=== PATIENT | female | born 1990 | race African-American/Black ===

== ENCOUNTER 2021-06-05 12:53 | Observation (INO) | payer OTHER ==
[~2021-06-05] VITALS: Ht 154.9 cm; Wt 93.4 kg
[2021-06-05 13:53] VITALS: BP 121/77
[2021-06-05 14:21] LABS: APPEARANCE,URINE CLEAR (CLEAR); BILIRUBIN,URINE NEGATIVE (NEGATIVE); BLOOD, URINE NEGATIVE (NEGATIVE); COLOR,URINE YELLOW (YELLOW); LEUKOCYTE ESTERASE ,URINE 1+ (NEGATIVE); NITRITE, URINE NEGATIVE (NEGATIVE); UGLUCOSE NEGATIVE (NEGATIVE)
[2021-06-05 14:27] LABS: RBC,URINE 0-5 /HPF (0-5)
== END 2021-06-05 15:32 | disposition home or self-care (01) ==
LOC: MLD 12:53
PROVIDERS: ADMIT Obstetrics & Gynecology; ATTEND Obstetrics & Gynecology
DX: O62.9 Abnormality of forces of labor, unspecified (principal); Z3A.39 39 weeks gestation of pregnancy
CPT/HCPCS: 59025; 76819; 81001; 87086; 87653; G0378

== ENCOUNTER 2021-06-11 22:37 | Inpatient (IN) | payer OTHER, SELFPAY ==
[~2021-06-11] VITALS: Ht 154.9 cm; Wt 93.9 kg
[2021-06-11] MEDS: LACTATED RINGERS 1,000 ML IV SCH (00:21)
[2021-06-11] MEDS ORDERED: OXYTOCIN 20 UNITS in LACTATED RINGERS 1,000 ML IV SCH (23:20)
[2021-06-11] MEDS ORDERED: MISOPROSTOL 25 MCG TAB VG PRN (23:20)
[2021-06-11] MEDS ORDERED: AMPICILLIN 2,000 MG in NACL 0.9% MINI-BAG PLUS 100 ML IV SCH (23:20)
[2021-06-11] MEDS ORDERED: METHYLERGONOVINE 0.2 MG/ML AMP IM PRN (23:20)
[2021-06-11 23:47] LABS: BASOPHILS % (AUTO) 0.3 % (0.0-2.0); EOSINOPHILS # (AUTO) 0.1 K/uL (0-0.4); EOSINOPHILS % (AUTO) 1.2 % (0.0-4.0); HEMATOCRIT 31.1 % (36-48); HEMOGLOBIN 10.1 g/dL (12.0-16.0); LYMPHOCYTES # (AUTO) 1.8 K/uL (2.5-16.5); LYMPHOCYTES % (AUTO) 23.9 % (20.5-51.1); MEAN CORPUSCULAR HEMOGLOBIN 28 pg (27-31); MEAN CORPUSCULAR HGB CONC 32 g/dL (33-37); MEAN CORPUSCULAR VOLUME 86.1 fL (80-94); MONOCYTES # (AUTO) 0.8 K/uL (0.8-1.0); MONOCYTES % (AUTO) 11.3 % (1.7-9.3); NEUTROPHILS # (AUTO) 4.7 K/uL (1.8-7.7); NEUTROPHILS % (AUTO) 63.3 % (42.2-75.2); PLATELET COUNT (AUTO) 165 K/uL (140-450); RED BLOOD CELL COUNT(AUTO) 3.61 MIL/uL (4.20-5.40); RED CELL DISTRIBUTION WIDTH 14.1 % (11.6-13.7); WHITE BLOOD COUNT (AUTO) 7.4 K/uL (4.8-10.8)
[2021-06-12 00:02] LABS: ALBUMIN 2.2 g/dL (3.4-5.0); ANION GAP 11.7 (8-16); CARBON DIOXIDE 22.2 mmol/L (21-32); CREATININE 0.7 mg/dL (0.6-1.3); POTASSIUM 3.9 mmol/L (3.5-5.1); TOTAL BILIRUBIN 0.3 mg/dL (0.0-1.0)
[2021-06-12 00:29] VITALS: BP 121/68
[2021-06-12] MEDS ORDERED: PRETAB PO (00:35)
[2021-06-12 00:59] LABS: APPEARANCE,URINE CLEAR (CLEAR); BILIRUBIN,URINE NEGATIVE (NEGATIVE); BLOOD, URINE NEGATIVE (NEGATIVE); COLOR,URINE YELLOW (YELLOW); LEUKOCYTE ESTERASE ,URINE NEGATIVE (NEGATIVE); NITRITE, URINE NEGATIVE (NEGATIVE); UGLUCOSE NEGATIVE (NEGATIVE)
[2021-06-12] MEDS ORDERED: ONDANSETRON 4 MG/2 ML VIAL IVP PRN (01:40)
[2021-06-12] MEDS ORDERED: MORPHINE SULFATE 5 MG/ML VIAL IVP PRN (01:40)
[2021-06-12] MEDS: LACTATED RINGERS 1,000 ML IV SCH ×3 (03:25→13:34)
[2021-06-12] MEDS ORDERED: AMPICILLIN 1,000 MG in NACL 0.9% MINI-BAG PLUS 50 ML IV SCH (04:00)
[2021-06-12] MEDS ORDERED: ROPIVACAINE 0.2%/NS PREMIX 200 ML EPI SCH (04:10)
[2021-06-12] MEDS ORDERED: ROPIVACAINE 0.2%/NS PREMIX 200 ML EPI ONE (04:14)
[2021-06-12] MEDS ORDERED: fentaNYL citrate 0.05 MG/ML VIAL ONE (04:15)
[2021-06-12] MEDS ORDERED: FENTANYL C 0.025 MG/HR PATCH TD SCH (05:00)
--- NOTE | 2021-06-12 08:46 | NUR ---
PATIENT HAS BEEN SCREENED AND CATEGORIZED LOW NUTRITION RISK. PATIENT WILL BE SEEN WITHIN 7 DAYS OF ADMISSION. 06/18/[address]
[2021-06-12] MEDS ORDERED: TERBUTALINE 1 MG/ML VIAL SUBQ ONE (09:08)
[2021-06-12] MEDS ORDERED: OXYTOCIN 20 UNITS/LR PREMIX 1,000 ML IV ONE (09:20)
[2021-06-12] MEDS ORDERED: BENZOCAINE/MENTHOL 20%-0.5% 60 GM CAN TP PRN (15:45)
[2021-06-12] MEDS ORDERED: METHYLERGONOVINE 0.2 MG TAB PO PRN (15:45)
[2021-06-12] MEDS ORDERED: METHYLERGONOVINE 0.2 MG/ML AMP IM PRN (15:45)
[2021-06-12] MEDS ORDERED: SIMETHICONE 80 MG TAB.CHEW PO PRN (15:45)
[2021-06-12] MEDS ORDERED: IBUPROFEN 600 MG TAB PO PRN (15:45)
[2021-06-12] MEDS ORDERED: bisacodyL 5 MG TABEC PO PRN (15:45)
[2021-06-12] MEDS ORDERED: DOCUSATE SODIUM 100 MG GELCAP PO PRN (15:45)
[2021-06-12] MEDS ORDERED: MEASLES, MUMPS, AND RUBELLA 1 VIAL SQVAC ONE (15:45)
[2021-06-12] MEDS ORDERED: OXYTOCIN 10 UNITS/ML VIAL IM PRN (15:45)
[2021-06-12] MEDS: oxyCODONE/APAP 5/325 MG 1 TAB TAB PO PRN ×2 (16:42→23:18)
[2021-06-12] MEDS: IBUPROFEN 800 MG TAB PO PRN (20:06)
[2021-06-13] MEDS: IBUPROFEN 800 MG TAB PO PRN ×2 (02:13→13:38)
[2021-06-13] MEDS: oxyCODONE/APAP 5/325 MG 1 TAB TAB PO PRN ×3 (06:19→20:08)
[2021-06-13] MEDS: MULTIVIT/MIN/CA/FE/FA 1 TAB PO SCH (09:56)
[2021-06-13 21:56] LABS: HEMATOCRIT 25.3 % (36-48); HEMOGLOBIN 7.8 g/dL (12.0-16.0)
[2021-06-14] MEDS: oxyCODONE/APAP 5/325 MG 1 TAB TAB PO PRN (03:49)
[2021-06-14] MEDS ORDERED: FERROUS SULFATE 325 MG TABEC PO SCH (08:00)
[2021-06-14] MEDS: MULTIVIT/MIN/CA/FE/FA 1 TAB PO SCH (09:04)
== END 2021-06-14 16:30 | disposition home or self-care (01) | DRG 560 ==
LOC: MLD 22:37 → MFCC 06-12 17:40
PROVIDERS: ADMIT Obstetrics & Gynecology; ATTEND Obstetrics & Gynecology
PROC: 3E033VJ Introduction of Other Hormone into Peripheral Vein, Percutaneous Approach (ICD-10-PCS; 2021-06-11)
PROC: 10E0XZZ Delivery of Products of Conception, External Approach (ICD-10-PCS; principal; 2021-06-12)
PROC: 10907ZC Drainage of Amniotic Fluid, Therapeutic from Products of Conception, Via Natural or Artificial Opening (ICD-10-PCS; 2021-06-12)
PROC: 3E0P7VZ Introduction of Hormone into Female Reproductive, Via Natural or Artificial Opening (ICD-10-PCS; 2021-06-12)
PROC: 0KQM0ZZ Repair Perineum Muscle, Open Approach (ICD-10-PCS; 2021-06-12)
PROC: 00HU33Z Insertion of Infusion Device into Spinal Canal, Percutaneous Approach (ICD-10-PCS; 2021-06-12)
PROC: 3E0R3BZ Introduction of Anesthetic Agent into Spinal Canal, Percutaneous Approach (ICD-10-PCS; 2021-06-12)
PROC: 3E0134Z Introduction of Serum, Toxoid and Vaccine into Subcutaneous Tissue, Percutaneous Approach (ICD-10-PCS; 2021-06-12)
PROC: 3E0234Z Introduction of Serum, Toxoid and Vaccine into Muscle, Percutaneous Approach (ICD-10-PCS; 2021-06-13)
DX: O66.0 Obstructed labor due to shoulder dystocia (principal); R71.0 Precipitous drop in hematocrit; O70.1 Second degree perineal laceration during delivery; O99.214 Obesity complicating childbirth; Z20.822 Contact with and (suspected) exposure to COVID-19; Z3A.39 39 weeks gestation of pregnancy; Z37.0 Single live birth; Z23 Encounter for immunization
CPT/HCPCS: 36415; 51702; 59200; 76815; 80053; 81003; 85018; 85025; 86592; 86886; 86900; 86901; 90715; J2590; J2795; J3010; J3105; J7120